=== PATIENT | male | born 1970 | race Hispanic/Latino ===

== ENCOUNTER 2020-11-01 17:37 | Emergency (ER) | payer OTHER ==
[~2020-11-01] VITALS: Ht 167.6 cm; Wt 113.4 kg
[2020-11-01 17:39] VITALS: BP 139/89
[2020-11-01 22:37] VITALS: BP 132/87
[2020-11-01] MEDS ORDERED: KETOROLAC 30MG VIAL (30MG/ML) IM ONE (23:00)
[2020-11-01] MEDS ORDERED: HYDROCODONE/ACETAMINOPHEN 5/325 MG TAB PO ONE (23:00)
[2020-11-01] MEDS ORDERED: CLINDAMYCIN 150 MG CAP PO ONE (23:00)
[2020-11-01] MEDS ORDERED: IBUP-2070 PO (23:31)
[2020-11-01] MEDS ORDERED: MUPI22OI2 TP (23:31)
[2020-11-01] MEDS ORDERED: CLIN300C10 PO (23:31)
[2020-11-02 00:25] VITALS: BP 127/85
[2020-11-02] MEDS ORDERED: TETANUS/DIPHTHERIA TOXOID [ADULT] 0.5 ML VIAL IM ONE (00:30)
== END 2020-11-02 00:30 | disposition home or self-care (01) ==
LOC: EDH 17:37
DX: L03.011 Cellulitis of right finger (principal); Z88.0 Allergy status to penicillin; Z88.8 Allergy status to other drugs, medicaments and biological substances; Z79.1 Long term (current) use of non-steroidal anti-inflammatories (NSAID)
CPT/HCPCS: 73130; 96372; 99283; J1885; 90714

== ENCOUNTER 2021-04-11 11:23 | Emergency (ER) | payer OTHER, SELFPAY ==
[~2021-04-11] VITALS: Ht 167.6 cm; Wt 111.1 kg
[~2021-04-11 11:23] MED LIST: CLIN-141 PO; IBUP-2070 PO; MUPI22OI2 TP
[2021-04-11] MEDS ORDERED: LIDOCAINE 1%-EPI 1:100,000 20 ML VIAL IJ SCH (12:00)
[2021-04-11] MEDS ORDERED: HYDROCODONE/ACETAMINOPHEN 10/325 MG TAB PO ONE (12:00)
[2021-04-11 12:18] VITALS: BP 129/87
[2021-04-11] MEDS ORDERED: LIDOCAINE 2%-EPI 1:200,000 20 ML VIAL IJ SCH (12:30)
[2021-04-11] MEDS ORDERED: CLIN-141 PO (12:59)
[2021-04-11] MEDS ORDERED: ACET-2247 PO (12:59)
[2021-04-11] MEDS ORDERED: CLINDAMYCIN 150 MG CAP PO ONE (13:00)
[2021-04-11] MEDS ORDERED: CEPHALEXIN 500 MG CAPSULE PO ONE (13:00)
== END 2021-04-11 13:08 | disposition home or self-care (01) ==
LOC: EDH 11:23
DX: K61.1 Rectal abscess (principal); I10 Essential (primary) hypertension; Z88.0 Allergy status to penicillin; Z79.1 Long term (current) use of non-steroidal anti-inflammatories (NSAID); E66.9 Obesity, unspecified; Z68.39 Body mass index [BMI] 39.0-39.9, adult
CPT/HCPCS: 46040; 87070; 87077 ×2; 87186 ×2; 99284; J3490

== ENCOUNTER 2021-10-19 06:51 | Day surgery (SDC) | payer OTHER ==
[2021-10-15 12:02] LABS: BASOPHILS % (AUTO) 0.9 % (0.0-5.0); EOSINOPHILS % (AUTO) 3.1 % (0.0-8.0); HEMATOCRIT 49.9 % (42-54); LYMPHOCYTES % (AUTO) 38.5 % (21.0-51.0); MEAN CORPUSCULAR HGB CONC 34.5 g/dL (32.0-36.0); MEAN CORPUSCULAR VOLUME 90.1 fL (79-99); MONOCYTES % (AUTO) 7.2 % (3.0-13.0); PLATELET COUNT (AUTO) 191 K/uL (130-400); RED BLOOD CELL COUNT(AUTO) 5.54 MIL/uL (4.50-6.20); RED CELL DISTRIBUTION WIDTH 12.2 % (11.0-15.5); WHITE BLOOD COUNT (AUTO) 7.5 K/uL (4.8-10.8)
[2021-10-15 12:05] LABS: APPEARANCE,URINE Clear (CLEAR); BILIRUBIN,URINE Negative (NEGATIVE); COLOR,URINE Yellow (YELLOW); GLUCOSE, URINE (UA) >=1000 mg/dL (NEGATIVE); KETONES,URINE Negative (NEGATIVE); LEUKOCYTE ESTERASE ,URINE Negative (NEGATIVE); NITRATE,URINE Negative (NEGATIVE); OCCULT BLOOD,URINE Negative (NEGATIVE); PROTEIN,URINE POS 1+ mg/dL (NEGATIVE)
[2021-10-15 12:16] LABS: CREATININE 1.1 mg/dL (0.5-1.5); POTASSIUM 4.1 mmol/L (3.5-5.1)
[2021-10-15 12:26] LABS: BACTERIA,URINE Rare /HPF (None Seen); RBC,URINE 0-1 /HPF (0-1); SQUAMOUS EPITHELIAL CELL,UR Rare /HPF (0-2); WBC,URINE 0-1 /HPF (0-1)
[2021-10-15 12:30] LABS: B-TYPE NATRIURETIC PEPTIDE 15 pg/mL (0-100)
[2021-10-15 12:37] LABS: INR 1.02 (0.85-1.15); PROTHROMBIN TIME 11.1 SEC (9.6-11.6)
[2021-10-15 12:38] LABS: PARTIAL THROMBOPLASTIN TIME 29.7 SEC (26.3-35.5)
[2021-10-16 08:42] VITALS: BP 133/80
[~2021-10-19] VITALS: Ht 170.2 cm; Wt 92.2 kg
[2021-10-19] VITALS (12 sets, daily range): BP systolic 116–132; BP diastolic 78–95
[~2021-10-19 06:51] MED LIST changes: +0.9% NACL 500ML IV.SOLN 500 ML IV SCH; +0.9%NACL 1000ML 1,000 ML IV ONE; +ASPI-1197 PO; -CLIN-141 PO; +DAPA1TAB3 PO; -IBUP-2070 PO; +METO25TA6 PO; -MUPI22OI2 TP; +PRAS10TA9 PO; +ROSU40TA21 PO; +SEMA1PEN3 SQ
[2021-10-19] MEDS ORDERED: HEPARIN 10,000 UNIT/10ML (1,000 UNIT/ML) VIAL ONE ×2 (07:57→09:50)
[2021-10-19] MEDS ORDERED: IOHEXOL 350 MG/ML 100ML INFUS..BTL IV ONE ×2 (07:57→10:04)
[2021-10-19] MEDS ORDERED: IOHEXOL-350 50ML VIAL IV ONE (07:57)
[2021-10-19] MEDS ORDERED: LIDOCAINE HCL 400MG/20ML VIAL ONE (07:57)
[2021-10-19] MEDS ORDERED: NITROGLYCERIN 50MG VIAL ONE (07:57)
[2021-10-19] MEDS ORDERED: NICARDIPINE 25MG INJ IV ONE (08:21)
[2021-10-19] MEDS ORDERED: FENTANYL CITRATE PF 50 MCG/1 ML 2ML VIAL ONE (08:38)
[2021-10-19] MEDS ORDERED: MIDAZOLAM HCL 1 MG/ML 2ML VIAL ONE (08:38)
[2021-10-19] MEDS ORDERED: PRASUGREL HCL 10 MG TABLET ONE (09:49)
[2021-10-19] MEDS ORDERED: 0.9%NACL 1000ML 1,000 ML IV SCH (11:30)
== END 2021-10-19 17:35 | disposition home or self-care (01) ==
LOC: DAH 06:51
PROVIDERS: ATTEND Internal Medicine Cardiovascular Disease
DX: I25.119 Atherosclerotic heart disease of native coronary artery with unspecified angina pectoris (principal); I25.82 Chronic total occlusion of coronary artery; I10 Essential (primary) hypertension; E11.9 Type 2 diabetes mellitus without complications; I25.2 Old myocardial infarction; E78.5 Hyperlipidemia, unspecified; I49.1 Atrial premature depolarization; F17.220 Nicotine dependence, chewing tobacco, uncomplicated; Z79.01 Long term (current) use of anticoagulants; Z79.899 Other long term (current) drug therapy
CPT/HCPCS: 80048; 83880; 85025; 85610; 85730; 81001; 36415; 71045; 93005; 82948 ×2; 92920; 93458; 96360; 96361; C9600; C1894 ×3; C1760; C1887; C1874 ×3; C1769 ×2; C1725 ×2; J3010; J3490 ×3; J7030; J1644 ×4; J2250; Q9967 ×3; A4215; A4222; A4221; A4663; A4216; A4606; Q9965 ×2; A4223 ×3; 75625; 99156; 99157